=== PATIENT | female | born 1990 | race Hispanic/Latino ===

== ENCOUNTER 2021-10-24 19:48 | Inpatient (IN) | payer OTHER ==
[~2021-10-24 19:48] MED LIST: Bupivacaine HCl 0.5%/Epinephrine 1:200,000/PF 30 ml Vial ONE; Bupivacaine/Epinephrine 0.25% 30 ML VIAL ONE
[2021-10-24 20:13] VITALS: BMI 25.7
[2021-10-24] MEDS ORDERED: hydrALAZINE 20 MG/ML VIAL SLOW IVP PRN (20:39)
[2021-10-24] MEDS ORDERED: Ibuprofen 800 MG TAB PO PRN (20:39)
[2021-10-24] MEDS ORDERED: Promethazine HCl 25 MG/ML VIAL IM PRN ×2 (20:39→22:36)
[2021-10-24] MEDS ORDERED: Butorphanol Tartrate 1 MG/ML VIAL SLOW IVP PRN (20:39)
[2021-10-24] MEDS ORDERED: Acetaminophen 500 MG TAB PO PRN (20:39)
[2021-10-24] MEDS ORDERED: Misoprostol 200 MCG TAB PR PRN (20:39)
[2021-10-24] MEDS ORDERED: Ondansetron PF 4 MG/2 ML Vial IVP PRN ×2 (20:39→22:36)
[2021-10-24] MEDS ORDERED: Lidocaine 1% (PF) 30 ML VIAL SC PRN (20:39)
[2021-10-24] MEDS ORDERED: Carboprost 250 MCG/ML AMP IM PRN (20:39)
[2021-10-24] MEDS ORDERED: Methylergonovine 0.2 MG/ML VIAL IM PRN (20:39)
[2021-10-24] MEDS ORDERED: Lactated Ringer's 1,000 ML IV SCH (20:45)
[2021-10-24] MEDS ORDERED: NS w/ Oxytocin 30 units 500 ML IV SCH (20:45)
[2021-10-24] MEDS ORDERED: Ondansetron PF 4 MG/2 ML Vial ONE (21:03)
[2021-10-24 21:06] LABS: Hemoglobin 11.7 g/dL (12.0-15.5); Mean Corpuscular HGB CONC 34.5 g/dL (32.0-36.0); Mean Corpuscular Hemoglobin 29.5 pg (27.0-33.0); Mean Corpuscular Volume 85.4 fl (81.6-98.3); Mean Platelet Volume 11.9 fl (7.4-10.4); Platelet Count 128 10x3/uL (150-450); RBC Distribution Width 13.2 % (11.5-14.5); Red Blood Cell (RBC) Count 3.97 10x6/uL (3.90-5.03); White Blood Cell (WBC) Count 9.1 10x3/uL (3.5-10.5)
[2021-10-24] MEDS ORDERED: Fentanyl 2 mcg/Bup 0.1% Cadd 100 ML ONE (21:06)
[2021-10-24 21:40] LABS: Hep B Surf Ag Non-Reactive S/CO (NonReactive)
[2021-10-24 21:41] LABS: Syphilis Antibody Nonreactive (Nonreactive); Syphilis Antibody Index 0.04 S/CO (<1.00 Non-Reactive)
[2021-10-24 22:01] LABS: HBSAg Index 0.19 S/CO (0-0.99)
[2021-10-24] MEDS ORDERED: ePHEDrine Sulfate 50 MG/10 ML VIAL SLOW IVP PRN (22:36)
[2021-10-24] MEDS ORDERED: diphenhydrAMINE 50 MG/ML VIAL IVP PRN (22:36)
[2021-10-24] MEDS ORDERED: Naloxone HCl 0.4 mg/ml Vial IVP PRN ×2 (22:36)
[2021-10-24] MEDS ORDERED: Hydrocerin (Eucerin) Cream 120 gm Jar TOP PRN (22:36)
[2021-10-24] MEDS ORDERED: Acetaminophen 325 MG TAB PO PRN (22:36)
[2021-10-24] MEDS ORDERED: Fentanyl 2 mcg/Bupivacaine 0.1% Cassette 100 ML EPIDURAL SCH (22:45)
[2021-10-24] MEDS ORDERED: Communication Order-Pharmacy FS SCH (22:45)
[2021-10-24] MEDS ORDERED: Lactated Ringer's 500 ML IV PRN (22:46)
[2021-10-24 23:48] LABS: SARS-CoV-2 NAA Rapid Test Not Detected (NotDetected)
[2021-10-25] MEDS: NS w/ Oxytocin 30 units 500 ML IV SCH ×2 (02:00→02:37)
[2021-10-25] MEDS ORDERED: Boostrix 0.5 ML (Tdap) VIAL IM ONE (02:05)
[2021-10-25] MEDS ORDERED: Preparation H Ointment 28 GM TUBE PR PRN (02:05)
[2021-10-25] MEDS ORDERED: Milk Of Magnesia 30 ML UDCUP PO PRN (02:05)
[2021-10-25] MEDS ORDERED: diphenhydrAMINE 25 MG CAP PO PRN (02:05)
[2021-10-25] MEDS ORDERED: Benzocaine-Menthol 82.5 ML CAN TOP PRN (02:05)
[2021-10-25] MEDS ORDERED: Bisacodyl 10 MG SUPP PR PRN (02:05)
[2021-10-25] MEDS ORDERED: Lanolin Ointment 7 GM TUBE TOP PRN (02:05)
[2021-10-25] MEDS ORDERED: hydrALAZINE 20 MG/ML VIAL SLOW IVP PRN (02:05)
[2021-10-25] MEDS ORDERED: Ibuprofen 600 MG TAB PO SCH (03:15)
[2021-10-25] MEDS: Ibuprofen 800 MG TAB PO SCH ×3 (05:38→21:01)
[2021-10-25] MEDS: Ferrous Sulfate 325 MG TAB PO SCH (08:00)
[2021-10-25 08:20] LABS: Hemoglobin 9.9 g/dL (12.0-15.5); Mean Corpuscular HGB CONC 33.6 g/dL (32.0-36.0); Mean Corpuscular Hemoglobin 29.3 pg (27.0-33.0); Mean Corpuscular Volume 87.3 fl (81.6-98.3); Mean Platelet Volume 11.6 fl (7.4-10.4); Platelet Count 100 10x3/uL (150-450); RBC Distribution Width 13.2 % (11.5-14.5); Red Blood Cell (RBC) Count 3.38 10x6/uL (3.90-5.03)
[2021-10-25] MEDS: Prenatal Vitamin 1 TAB PO SCH (09:58)
[2021-10-25] MEDS: Docusate 100 MG CAP PO SCH ×2 (09:58→21:01)
[2021-10-25 16:26] LABS: HIV (1/2) Antibody/Antigen Non-Reactive (NonReactive); HIV 1/2 INDEX 0.07 S/CO (<1.00)
[2021-10-26 04:24] VITALS: TEMP 97.8
[2021-10-26] MEDS: Ibuprofen 800 MG TAB PO SCH (05:58)
[2021-10-26] MEDS: Docusate 100 MG CAP PO SCH (08:47)
[2021-10-26] MEDS: Ferrous Sulfate 325 MG TAB PO SCH (08:47)
[2021-10-26] MEDS: Prenatal Vitamin 1 TAB PO SCH (08:48)
[2021-10-26 08:51] VITALS: BP 111/59
== END 2021-10-26 14:00 | disposition home or self-care (01) | DRG 807 ==
LOC: CSHLD/OP 19:48 → CSHLD 20:27 → CSHPP 10-25 04:20
PROVIDERS: ADMIT Obstetrics & Gynecology; ATTEND Obstetrics & Gynecology
PROC: 10E0XZZ Delivery of Products of Conception, External Approach (ICD-10-PCS; principal; 2021-10-25)
DX: O99.02 Anemia complicating childbirth (principal); Z37.0 Single live birth; D64.9 Anemia, unspecified; Z20.822 Contact with and (suspected) exposure to COVID-19; Z3A.39 39 weeks gestation of pregnancy; Z79.899 Other long term (current) drug therapy; O71.82 Other specified trauma to perineum and vulva
CPT/HCPCS: 36415; 85027; 86780; 86850; 86900; 86901; 87340; 87389; J2405; J2590; U0002